=== PATIENT | female | born 1950 | race Caucasian/White ===

== ENCOUNTER 2016-09-17 12:51 | Emergency (ER) | payer OTHER ==
[~2016-09-17] VITALS: Ht 167.6 cm; Wt 87.7 kg
[2016-09-17 12:57] VITALS: BP 157/79
== END 2016-09-17 16:35 | disposition home or self-care (01) ==
LOC: ED 12:51
DX: S91.159A Open bite of unspecified toe(s) without damage to nail, initial encounter (principal); I10 Essential (primary) hypertension; W57.XXXA Bitten or stung by nonvenomous insect and other nonvenomous arthropods, initial encounter; Y93.89 Activity, other specified; Y99.8 Other external cause status; Y92.89 Other specified places as the place of occurrence of the external cause

== ENCOUNTER 2019-02-21 18:19 | Emergency (ER) | payer OTHER ==
[~2019-02-21] VITALS: Ht 167.6 cm; Wt 79.4 kg
[2019-02-21 18:26] VITALS: Ht 167.6 cm; Wt 79.4 kg
[2019-02-21 18:49] LABS: BASOPHIL % 0.5 % (0-2); PLATELET COUNT 236 x10^3mcL (130-400); RED CELL DISTRIBUTION WIDTH 13.9 % (11.5-14.5)
[2019-02-21 19:01] LABS: CALCIUM 9.2 mg/dL (8.5-10.1); CARBON DIOXIDE 28.7 mmol/L (21-32); CREATININE SERUM 1.1 mg/dL (0.6-1.0); POTASSIUM SERUM 3.9 mmol/L (3.5-5.1)
[2019-02-21 19:05] LABS: ALBUMIN 3.8 g/dL (3.4-5.0); BILIRUBIN TOTAL 0.27 mg/dL (0.20-1.00); TOTAL PROTEIN, SERUM 7.8 g/dL (6.4-8.2)
[2019-02-21 21:41] VITALS: BP 148/74
== END 2019-02-21 21:41 | disposition left against medical advice (07) ==
LOC: ED 18:19
DX: I10 Essential (primary) hypertension (principal); R07.89 Other chest pain; R51 Headache
CPT/HCPCS: 36415; Q0092